=== PATIENT | female | born 1965 | race Caucasian/White ===

== ENCOUNTER 2022-07-24 13:40 | Inpatient (IN) | payer OTHER ==
[~2022-07-24] VITALS: Ht 172.7 cm; Wt 131.1 kg
[2022-07-24 14:12] VITALS: BP_SYST 147
[2022-07-24] MEDS ORDERED: CLINDAMYCIN 600 MG in D5W 50 ML IV ONE (15:45)
[2022-07-24] MEDS ORDERED: cefTRIAXone 1 GM in D5W 50 ML IV ONE (15:45)
[2022-07-24 16:32] LABS: BASOPHILS % (AUTO) 0.3 % (0.0-2.0); EOSINOPHILS # (AUTO) 0.1 K/uL (0.0-0.4); EOSINOPHILS % (AUTO) 1.2 % (0.0-4.0); HEMATOCRIT 37.7 % (36-48); HEMOGLOBIN 13.1 g/dL (12.0-16.0); LYMPHOCYTES # (AUTO) 1.7 K/uL (1.0-5.5); LYMPHOCYTES % (AUTO) 19.2 % (20.5-51.5); MEAN CORPUSCULAR HEMOGLOBIN 31 pg (27-31); MEAN CORPUSCULAR HGB CONC 35 % (32-36); MEAN CORPUSCULAR VOLUME 88 fL (79.0-98.0); MONOCYTES # (AUTO) 0.5 K/uL (0.0-1.0); MONOCYTES % (AUTO) 5.5 % (1.7-9.3); NEUTROPHILS # (AUTO) 6.7 K/uL (1.8-7.7); NEUTROPHILS % (AUTO) 73.8 % (40.0-70.0); PLATELET COUNT (AUTO) 357 K/uL (130-430); RED BLOOD CELL COUNT(AUTO) 4.28 MIL/uL (4.2-6.2)
[2022-07-24 16:38] LABS: ERYTHROCYTE SEDIMENTATION RATE 64 MM/HR (0-20)
[2022-07-24 16:46] LABS: ALBUMIN 3.4 g/dL (3.4-4.8); CALCIUM 9.2 mg/dL (8.4-11.0); CREATININE 1.67 mg/dL (0.55-1.30); TOTAL BILIRUBIN 0.3 mg/dL (0.0-1.0)
[2022-07-24] MEDS ORDERED: cefTRIAXone 1 GM VIAL ONE (16:59)
[2022-07-24] MEDS ORDERED: INSULIN REGULAR, HUMAN 10 UNITS/0.1 ML, 3 ML VIAL SUBCUT ONE (17:00)
[2022-07-24] MEDS ORDERED: OXAZ30CA PO (22:47)
[2022-07-24] MEDS ORDERED: CARV25TA55 PO (22:47)
[2022-07-24] MEDS ORDERED: GABA-529 PO (22:47)
[2022-07-24] MEDS ORDERED: NORT10CA PO (22:47)
[2022-07-25 01:10] VITALS: BP_SYST 161
[2022-07-25] MEDS ORDERED: GABAPENTIN 300 MG CAPSULE PO ONE (02:15)
[2022-07-25] MEDS ORDERED: CARVEDILOL 25 MG TABLET (COREG) PO ONE (02:30)
[2022-07-25 04:49] VITALS: BP_SYST 142
[2022-07-25] MEDS: INSULIN REGULAR, HUMAN 100 UNITS/ML, 3 ML VIAL (humuLIN R) SUBCUT PRN ×3 (05:38→20:59)
[2022-07-25] MEDS ORDERED: ACETAMINOPHEN 325 MG TABLET PO PRN ×2 (10:00→10:30)
[2022-07-25] MEDS ORDERED: NALOXONE HCL 0.4 MG/ML AMP (NARCAN) IVP PRN ×2 (10:00)
[2022-07-25 10:10] LABS: BASOPHILS % (AUTO) 0.5 % (0.0-2.0); EOSINOPHILS # (AUTO) 0.2 K/uL (0.0-0.4); EOSINOPHILS % (AUTO) 2.2 % (0.0-4.0); HEMATOCRIT 34.3 % (36-48); HEMOGLOBIN 11.7 g/dL (12.0-16.0); LYMPHOCYTES # (AUTO) 2.1 K/uL (1.0-5.5); LYMPHOCYTES % (AUTO) 25.8 % (20.5-51.5); MEAN CORPUSCULAR HEMOGLOBIN 30 pg (27-31); MEAN CORPUSCULAR HGB CONC 34 % (32-36); MEAN CORPUSCULAR VOLUME 89 fL (79.0-98.0); MONOCYTES # (AUTO) 0.6 K/uL (0.0-1.0); MONOCYTES % (AUTO) 7.7 % (1.7-9.3); NEUTROPHILS # (AUTO) 5.2 K/uL (1.8-7.7); NEUTROPHILS % (AUTO) 63.8 % (40.0-70.0); PLATELET COUNT (AUTO) 285 K/uL (130-430); RED BLOOD CELL COUNT(AUTO) 3.88 MIL/uL (4.2-6.2); WHITE BLOOD COUNT (AUTO) 8.2 K/uL (4.8-10.8)
[2022-07-25 10:16] LABS: ALBUMIN 2.7 g/dL (3.4-4.8); CALCIUM 8.6 mg/dL (8.4-11.0); CREATININE 1.7 mg/dL (0.55-1.30); PHOSPHORUS 2.9 mg/dL (2.7-4.5); TOTAL BILIRUBIN 0.2 mg/dL (0.0-1.0)
[2022-07-25] MEDS: HYDROcodone/ACETAMIN 10-325 MG TAB PO PRN (10:31)
[2022-07-25] MEDS ORDERED: ONDANSETRON HCL 4 MG/2 ML VIAL IM PRN (11:45)
[2022-07-25] MEDS ORDERED: KETOROLAC TROMETHAMINE 30 MG VIAL IVP PRN (11:45)
[2022-07-25] MEDS: ONDANSETRON HCL 4 MG/2 ML VIAL IVP PRN ×2 (11:57→18:35)
[2022-07-25] MEDS ORDERED: CLINDAMYCIN 300 MG/50 ML D5W 50 ML IV SCH (12:00)
[2022-07-25] MEDS ORDERED: CLINDAMYCIN 300 MG in D5W 50 ML IV SCH (12:00)
[2022-07-25 12:03] VITALS: BP_SYST 141
[2022-07-25] MEDS: NORMAL SALINE 5 ML DISP.SYRIN IVF SCH ×2 (13:27→21:00)
[2022-07-25] MEDS ORDERED: NORTRIPTYLINE HCL 10 MG CAPSULE PO SCH (15:00)
[2022-07-25] MEDS ORDERED: OXAZEPAM PO SCH (15:00)
[2022-07-25 16:29] VITALS: BP_SYST 143
[2022-07-25] MEDS ORDERED: MORPHINE 2 MG/ML INJ. SYRINGE IVP ONE (17:15)
[2022-07-25] MEDS: NACL 0.9% 1,000 ML IV SCH ×2 (18:35→20:46)
[2022-07-25] MEDS ORDERED: VANCOMYCIN HCL 1,000 MG in NS 250 ML IV SCH (20:00)
[2022-07-25 20:10] VITALS: BP_SYST 146
[2022-07-25] MEDS: VANCOMYCIN HCL 1,000 MG in NS 250 ML IV SCH (20:47)
[2022-07-25] MEDS: GABAPENTIN 300 MG CAPSULE PO SCH (20:54)
[2022-07-25] MEDS: CARVEDILOL 25 MG TABLET (COREG) PO SCH (20:54)
[2022-07-25] MEDS: INSULIN GLARGINE 100 UNITS/ML, 10 ML VIAL SUBCUT SCH (20:56)
[2022-07-25] MEDS: LORazepam 2 MG/ML VIAL IVP PRN (22:51)
[2022-07-26 00:21] LABS: BILIRUBIN,URINE NEGATIVE (NEGATIVE); BLOOD, URINE NEGATIVE (NEGATIVE); COLOR,URINE YELLOW (YELLOW); GLUCOSE,URINE 3+ (NEGATIVE); KETONES,URINE NEGATIVE (NEGATIVE); LEUKOCYTE ESTERASE ,URINE NEGATIVE (NEGATIVE); NITRITE, URINE NEGATIVE (NEGATIVE); PROTEIN URINE 2+ (NEGATIVE); UROBILINOGEN,URINE 0.2 (0.2-1.0)
[2022-07-26 00:29] LABS: CLARITY/URINE HAZY (CLEAR)
[2022-07-26 00:31] LABS: BACTERIA,URINE None Seen /HPF (None Seen); RBC,URINE 0-3 /HPF (0-3); WBC,URINE 0-3 /HPF (0-3)
[2022-07-26 02:30] VITALS: BP_SYST 143
[2022-07-26 04:00] VITALS: BP_SYST 130
[2022-07-26 05:19] LABS: BASOPHILS % (AUTO) 0.5 % (0.0-2.0); EOSINOPHILS # (AUTO) 0.2 K/uL (0.0-0.4); EOSINOPHILS % (AUTO) 2.9 % (0.0-4.0); HEMATOCRIT 34.8 % (36-48); HEMOGLOBIN 11.9 g/dL (12.0-16.0); LYMPHOCYTES # (AUTO) 2.4 K/uL (1.0-5.5); LYMPHOCYTES % (AUTO) 31.1 % (20.5-51.5); MEAN CORPUSCULAR HEMOGLOBIN 30 pg (27-31); MEAN CORPUSCULAR HGB CONC 34 % (32-36); MEAN CORPUSCULAR VOLUME 89 fL (79.0-98.0); MONOCYTES # (AUTO) 0.6 K/uL (0.0-1.0); MONOCYTES % (AUTO) 7.3 % (1.7-9.3); NEUTROPHILS # (AUTO) 4.6 K/uL (1.8-7.7); NEUTROPHILS % (AUTO) 58.2 % (40.0-70.0); PLATELET COUNT (AUTO) 283 K/uL (130-430); RED BLOOD CELL COUNT(AUTO) 3.91 MIL/uL (4.2-6.2); RED CELL DISTRIBUTION WIDTH 13.3 % (9.0-15.0); WHITE BLOOD COUNT (AUTO) 7.9 K/uL (4.8-10.8)
[2022-07-26] MEDS: NORMAL SALINE 5 ML DISP.SYRIN IVF SCH ×3 (05:46→22:46)
[2022-07-26] MEDS: INSULIN REGULAR, HUMAN 100 UNITS/ML, 3 ML VIAL (humuLIN R) SUBCUT PRN ×2 (05:51→22:45)
[2022-07-26 05:56] LABS: C-REACTIVE PROTEIN QUANT 0.2 mg/dL (0-0.5); CALCIUM 8.2 mg/dL (8.4-11.0); CREATININE 1.54 mg/dL (0.55-1.30); PHOSPHORUS 3.5 mg/dL (2.7-4.5)
[2022-07-26 07:38] LABS: ERYTHROCYTE SEDIMENTATION RATE 33 MM/HR (0-20)
[2022-07-26 08:23] VITALS: BP_SYST 159
[2022-07-26] MEDS: CARVEDILOL 25 MG TABLET (COREG) PO SCH ×2 (10:37→22:04)
[2022-07-26] MEDS: HYDROcodone/ACETAMIN 10-325 MG TAB PO PRN ×2 (10:40→20:07)
[2022-07-26] MEDS: INSULIN GLARGINE 100 UNITS/ML, 10 ML VIAL SUBCUT SCH ×2 (10:55→22:46)
[2022-07-26 14:34] VITALS: BP_SYST 124
[2022-07-26 18:35] VITALS: BP_SYST 149
[2022-07-26 20:10] VITALS: BP_SYST 131
[2022-07-26] MEDS: GABAPENTIN 300 MG CAPSULE PO SCH (22:04)
[2022-07-26] MEDS: VANCOMYCIN HCL 1,000 MG in NS 250 ML IV SCH (22:06)
[2022-07-26] MEDS: NACL 0.9% 1,000 ML IV SCH (22:07)
[2022-07-26] MEDS: LORazepam 2 MG/ML VIAL IVP PRN (22:56)
[2022-07-27 01:11] VITALS: BP_SYST 131
[2022-07-27 05:42] LABS: BASOPHILS % (AUTO) 0.5 % (0.0-2.0); EOSINOPHILS # (AUTO) 0.2 K/uL (0.0-0.4); EOSINOPHILS % (AUTO) 3.2 % (0.0-4.0); HEMATOCRIT 32.6 % (36-48); HEMOGLOBIN 11.1 g/dL (12.0-16.0); LYMPHOCYTES # (AUTO) 2.7 K/uL (1.0-5.5); LYMPHOCYTES % (AUTO) 34.9 % (20.5-51.5); MEAN CORPUSCULAR HEMOGLOBIN 30 pg (27-31); MEAN CORPUSCULAR HGB CONC 34 % (32-36); MEAN CORPUSCULAR VOLUME 89 fL (79.0-98.0); MONOCYTES # (AUTO) 0.6 K/uL (0.0-1.0); MONOCYTES % (AUTO) 7.5 % (1.7-9.3); NEUTROPHILS # (AUTO) 4.1 K/uL (1.8-7.7); NEUTROPHILS % (AUTO) 53.9 % (40.0-70.0); PLATELET COUNT (AUTO) 264 K/uL (130-430); RED BLOOD CELL COUNT(AUTO) 3.68 MIL/uL (4.2-6.2); RED CELL DISTRIBUTION WIDTH 12.7 % (9.0-15.0); WHITE BLOOD COUNT (AUTO) 7.6 K/uL (4.8-10.8)
[2022-07-27] MEDS: NORMAL SALINE 5 ML DISP.SYRIN IVF SCH ×3 (06:43→21:29)
[2022-07-27 06:50] LABS: ALANINE AMINOTRANSFERASE 14 U/L (12-78); ALBUMIN 2.3 g/dL (3.4-4.8); ANION GAP 5 (5-15); ASPARTATE AMINOTRANSFERASE 13 U/L (10-37); CALCIUM 8.1 mg/dL (8.4-11.0); CHLORIDE 104 mmol/L (98-107); CREATININE 1.59 mg/dL (0.55-1.30); GLUCOSE 241 mg/dL (70-99); PHOSPHORUS 3.6 mg/dL (2.7-4.5); TOTAL BILIRUBIN 0.2 mg/dL (0.0-1.0); UREA NITROGEN, BLOOD 31 mg/dL (8-21)
[2022-07-27 07:36] LABS: C-REACTIVE PROTEIN QUANT < 0.2 mg/dL (0-0.5); GFR AFRICAN AMERICAN 43 mL/min (>90)
[2022-07-27 08:13] LABS: ERYTHROCYTE SEDIMENTATION RATE 31 MM/HR (0-20)
[2022-07-27] MEDS: INSULIN GLARGINE 100 UNITS/ML, 10 ML VIAL SUBCUT SCH ×2 (09:00→21:29)
[2022-07-27] MEDS: CARVEDILOL 25 MG TABLET (COREG) PO SCH ×2 (09:56→21:13)
[2022-07-27 11:26] VITALS: BP_SYST 125
[2022-07-27] MEDS: NACL 0.9% 1,000 ML IV SCH (12:11)
[2022-07-27] MEDS ORDERED: BALSAM PERU/CASTOR OIL 56.7 GM OINT...G. TP ONE (14:30)
[2022-07-27 16:55] VITALS: BP_SYST 175
[2022-07-27] MEDS: GABAPENTIN 300 MG CAPSULE PO SCH (21:12)
[2022-07-27] MEDS: VANCOMYCIN HCL 1,000 MG in NS 250 ML IV SCH (21:13)
[2022-07-27] MEDS: INSULIN REGULAR, HUMAN 100 UNITS/ML, 3 ML VIAL (humuLIN R) SUBCUT PRN (21:28)
[2022-07-27 22:27] VITALS: BP_SYST 161
[2022-07-27] MEDS: HYDROcodone/ACETAMIN 5-325 MG TAB (NORCO/ VICODIN) PO PRN (23:01)
[2022-07-28 00:34] VITALS: BP_SYST 149
[2022-07-28] MEDS: NACL 0.9% 1,000 ML IV SCH (02:03)
[2022-07-28 05:10] VITALS: BP_SYST 139
[2022-07-28] MEDS: NORMAL SALINE 5 ML DISP.SYRIN IVF SCH ×3 (05:11→22:16)
[2022-07-28 06:10] LABS: BASOPHILS % (AUTO) 0.5 % (0.0-2.0); EOSINOPHILS # (AUTO) 0.2 K/uL (0.0-0.4); EOSINOPHILS % (AUTO) 2.7 % (0.0-4.0); HEMATOCRIT 34.2 % (36-48); HEMOGLOBIN 11.9 g/dL (12.0-16.0); LYMPHOCYTES # (AUTO) 2.4 K/uL (1.0-5.5); LYMPHOCYTES % (AUTO) 32.2 % (20.5-51.5); MEAN CORPUSCULAR HEMOGLOBIN 30 pg (27-31); MEAN CORPUSCULAR HGB CONC 35 % (32-36); MEAN CORPUSCULAR VOLUME 88 fL (79.0-98.0); MONOCYTES # (AUTO) 0.6 K/uL (0.0-1.0); MONOCYTES % (AUTO) 7.6 % (1.7-9.3); NEUTROPHILS # (AUTO) 4.2 K/uL (1.8-7.7); PLATELET COUNT (AUTO) 274 K/uL (130-430); RED CELL DISTRIBUTION WIDTH 12.8 % (9.0-15.0); WHITE BLOOD COUNT (AUTO) 7.4 K/uL (4.8-10.8)
[2022-07-28 06:25] LABS: ANION GAP 5 (5-15); CALCIUM 8.4 mg/dL (8.4-11.0); CHLORIDE 104 mmol/L (98-107); CREATININE 1.26 mg/dL (0.55-1.30); GLUCOSE 162 mg/dL (70-99); PHOSPHORUS 3.1 mg/dL (2.7-4.5); UREA NITROGEN, BLOOD 23 mg/dL (8-21)
[2022-07-28 06:31] LABS: ERYTHROCYTE SEDIMENTATION RATE 35 MM/HR (0-20)
[2022-07-28] MEDS: HYDROcodone/ACETAMIN 5-325 MG TAB (NORCO/ VICODIN) PO PRN (06:31)
[2022-07-28 06:54] LABS: GFR AFRICAN AMERICAN 56 mL/min (>90)
[2022-07-28 06:55] LABS: C-REACTIVE PROTEIN QUANT < 0.2 mg/dL (0-0.5)
[2022-07-28] MEDS: INSULIN GLARGINE 100 UNITS/ML, 10 ML VIAL SUBCUT SCH ×2 (08:58→20:45)
[2022-07-28] MEDS: VANCOMYCIN HCL 1,000 MG in NS 250 ML IV SCH ×2 (09:00→22:17)
[2022-07-28] MEDS: CARVEDILOL 25 MG TABLET (COREG) PO SCH ×2 (09:00→20:34)
[2022-07-28] MEDS: BALSAM PERU/CASTOR OIL 56.7 GM OINT...G. TP SCH (09:01)
[2022-07-28 12:21] VITALS: BP_SYST 127
[2022-07-28 17:13] VITALS: BP_SYST 154
[2022-07-28 20:00] VITALS: BP_SYST 151
[2022-07-28] MEDS: GABAPENTIN 300 MG CAPSULE PO SCH (20:34)
[2022-07-28] MEDS: HYDROcodone/ACETAMIN 10-325 MG TAB PO PRN (20:35)
[2022-07-28] MEDS: INSULIN REGULAR, HUMAN 100 UNITS/ML, 3 ML VIAL (humuLIN R) SUBCUT PRN (20:46)
[2022-07-28] MEDS ORDERED: NORTRIPTYLINE HCL 10 MG CAPSULE PO SCH (21:00)
[2022-07-28] MEDS ORDERED: AMITRIPTYLINE HCL 10 MG TABLET (ELAVIL) PO PRN (22:15)
[2022-07-28] MEDS: ONDANSETRON HCL 4 MG/2 ML VIAL IVP PRN (22:20)
[2022-07-29 04:00] VITALS: BP_SYST 129
[2022-07-29] MEDS: NORMAL SALINE 5 ML DISP.SYRIN IVF SCH ×3 (06:25→21:49)
[2022-07-29] MEDS: HYDROcodone/ACETAMIN 10-325 MG TAB PO PRN ×3 (06:42→21:33)
[2022-07-29] MEDS: BALSAM PERU/CASTOR OIL 56.7 GM OINT...G. TP SCH (06:50)
[2022-07-29 08:01] LABS: BASOPHILS % (AUTO) 0.5 % (0.0-2.0); EOSINOPHILS # (AUTO) 0.2 K/uL (0.0-0.4); EOSINOPHILS % (AUTO) 2.8 % (0.0-4.0); HEMATOCRIT 35.6 % (36-48); LYMPHOCYTES # (AUTO) 2.7 K/uL (1.0-5.5); LYMPHOCYTES % (AUTO) 36.2 % (20.5-51.5); MEAN CORPUSCULAR HEMOGLOBIN 30 pg (27-31); MEAN CORPUSCULAR HGB CONC 34 % (32-36); MEAN CORPUSCULAR VOLUME 90 fL (79.0-98.0); MONOCYTES # (AUTO) 0.6 K/uL (0.0-1.0); MONOCYTES % (AUTO) 7.7 % (1.7-9.3); NEUTROPHILS # (AUTO) 3.9 K/uL (1.8-7.7); NEUTROPHILS % (AUTO) 52.8 % (40.0-70.0); PLATELET COUNT (AUTO) 296 K/uL (130-430); RED BLOOD CELL COUNT(AUTO) 3.98 MIL/uL (4.2-6.2); WHITE BLOOD COUNT (AUTO) 7.5 K/uL (4.8-10.8)
[2022-07-29 08:02] VITALS: BP_SYST 105
[2022-07-29 08:12] LABS: ANION GAP 5 (5-15); CALCIUM 8.4 mg/dL (8.4-11.0); CHLORIDE 106 mmol/L (98-107); CREATININE 1.25 mg/dL (0.55-1.30); GLUCOSE 80 mg/dL (70-99); PHOSPHORUS 3.9 mg/dL (2.7-4.5); UREA NITROGEN, BLOOD 20 mg/dL (8-21)
[2022-07-29 08:14] LABS: C-REACTIVE PROTEIN QUANT < 0.2 mg/dL (0-0.5); GFR AFRICAN AMERICAN 57 mL/min (>90)
[2022-07-29 08:25] LABS: ERYTHROCYTE SEDIMENTATION RATE 35 MM/HR (0-20)
[2022-07-29] MEDS: VANCOMYCIN HCL 1,000 MG in NS 250 ML IV SCH ×2 (09:05→21:49)
[2022-07-29] MEDS: CARVEDILOL 25 MG TABLET (COREG) PO SCH ×2 (09:06→20:16)
[2022-07-29] MEDS: INSULIN GLARGINE 100 UNITS/ML, 10 ML VIAL SUBCUT SCH ×2 (09:17→21:39)
[2022-07-29 12:00] VITALS: BP_SYST 138
[2022-07-29] MEDS ORDERED: INSU100V9 SUBCUT (15:18)
[2022-07-29 16:00] VITALS: BP_SYST 145
[2022-07-29] MEDS: INSULIN REGULAR, HUMAN 100 UNITS/ML, 3 ML VIAL (humuLIN R) SUBCUT PRN ×2 (17:05→21:40)
[2022-07-29 20:00] VITALS: BP_SYST 138
[2022-07-29] MEDS: GABAPENTIN 300 MG CAPSULE PO SCH (20:16)
[2022-07-30] VITALS (7 sets, daily range): BP systolic 96–147
[2022-07-30] MEDS: ONDANSETRON HCL 4 MG/2 ML VIAL IVP PRN ×3 (01:25→18:15)
[2022-07-30] MEDS: HYDROcodone/ACETAMIN 10-325 MG TAB PO PRN ×2 (01:25→06:28)
[2022-07-30 05:12] LABS: ALBUMIN 2.4 g/dL (3.4-4.8); CALCIUM 8.2 mg/dL (8.4-11.0); CREATININE 1.55 mg/dL (0.55-1.30); PHOSPHORUS 3.7 mg/dL (2.7-4.5); TOTAL BILIRUBIN 0.2 mg/dL (0.0-1.0)
[2022-07-30 06:07] LABS: BASOPHILS % (AUTO) 0.4 % (0.0-2.0); EOSINOPHILS # (AUTO) 0.2 K/uL (0.0-0.4); EOSINOPHILS % (AUTO) 3.1 % (0.0-4.0); HEMATOCRIT 33.6 % (36-48); HEMOGLOBIN 11.3 g/dL (12.0-16.0); LYMPHOCYTES # (AUTO) 2.6 K/uL (1.0-5.5); LYMPHOCYTES % (AUTO) 34.7 % (20.5-51.5); MEAN CORPUSCULAR HEMOGLOBIN 30 pg (27-31); MEAN CORPUSCULAR HGB CONC 34 % (32-36); MEAN CORPUSCULAR VOLUME 90 fL (79.0-98.0); MONOCYTES # (AUTO) 0.7 K/uL (0.0-1.0); NEUTROPHILS % (AUTO) 52.8 % (40.0-70.0); PLATELET COUNT (AUTO) 284 K/uL (130-430); RED BLOOD CELL COUNT(AUTO) 3.72 MIL/uL (4.2-6.2); RED CELL DISTRIBUTION WIDTH 12.9 % (9.0-15.0); WHITE BLOOD COUNT (AUTO) 7.6 K/uL (4.8-10.8)
[2022-07-30] MEDS: NORMAL SALINE 5 ML DISP.SYRIN IVF SCH ×3 (06:23→22:30)
[2022-07-30] MEDS: CARVEDILOL 25 MG TABLET (COREG) PO SCH ×2 (09:30→20:55)
[2022-07-30] MEDS: BALSAM PERU/CASTOR OIL 56.7 GM OINT...G. TP SCH (09:31)
[2022-07-30] MEDS: INSULIN GLARGINE 100 UNITS/ML, 10 ML VIAL SUBCUT SCH ×2 (09:33→21:03)
[2022-07-30] MEDS ORDERED: HYDR-3927 PO (10:45)
[2022-07-30] MEDS ORDERED: CEFA2SYR4 IV (10:45)
[2022-07-30] MEDS ORDERED: VANC1PLA9 IV (10:45)
[2022-07-30] MEDS ORDERED: PERC10 PO (10:45)
[2022-07-30] MEDS: VANCOMYCIN HCL 1,000 MG in NS 250 ML IV SCH ×2 (11:21→21:00)
[2022-07-30] MEDS: OXYCODONE/ACETAMINOPHEN *10*mg/325 mg TABLET PO PRN ×2 (11:50→20:56)
[2022-07-30] MEDS: GABAPENTIN 300 MG CAPSULE PO SCH (20:54)
== END 2022-07-30 23:20 | disposition home or self-care (01) | DRG 871 ==
LOC: SED 13:40 → SMU 22:28
PROVIDERS: ADMIT Preventive Medicine Preventive Medicine/Occupational Environmental Medicine; ATTEND Preventive Medicine Preventive Medicine/Occupational Environmental Medicine
DX: A41.9 Sepsis, unspecified organism (principal); E43 Unspecified severe protein-calorie malnutrition; L03.113 Cellulitis of right upper limb; E87.1 Hypo-osmolality and hyponatremia; N17.9 Acute kidney failure, unspecified; I13.0 Hypertensive heart and chronic kidney disease with heart failure and stage 1 through stage 4 chronic kidney disease, or unspecified chronic kidney disease; Z68.41 Body mass index [BMI] 40.0-44.9, adult; I25.10 Atherosclerotic heart disease of native coronary artery without angina pectoris; E11.65 Type 2 diabetes mellitus with hyperglycemia; S61.451A Open bite of right hand, initial encounter; E11.22 Type 2 diabetes mellitus with diabetic chronic kidney disease; N18.32 Chronic kidney disease, stage 3b; I50.9 Heart failure, unspecified; E83.51 Hypocalcemia; E83.52 Hypercalcemia; D64.9 Anemia, unspecified; E88.09 Other disorders of plasma-protein metabolism, not elsewhere classified; L03.011 Cellulitis of right finger; Z20.822 Contact with and (suspected) exposure to COVID-19; Z88.0 Allergy status to penicillin; Z79.899 Other long term (current) drug therapy; Z90.710 Acquired absence of both cervix and uterus; W55.01XA Bitten by cat, initial encounter; Y93.89 Activity, other specified; Y92.89 Other specified places as the place of occurrence of the external cause; Y99.8 Other external cause status; Y93.9 Activity, unspecified; Y92.9 Unspecified place or not applicable
CPT/HCPCS: 36415; 78315; 80048; 80053; 80202; 81000; 82962; 83605; 83735; 84100; 84302; 85025; 85651-TC; 86140; 87040; 87070-TC; 87075-TC; 96365; 96368; 99285; A9503; J0696; J1815; J2060; J2270; J2405; J3370; J3490; J7050; J7060

== ENCOUNTER 2022-08-09 20:44 | Emergency (ER) | payer OTHER ==
[~2022-08-09] VITALS: Ht 172.7 cm; Wt 135.2 kg
[~2022-08-09 20:44] MED LIST: CARV25TA55 PO; CEFA2SYR4 IV; GABA-529 PO; HYDR-3927 PO; INSU100V9 SUBCUT; NORT10CA PO; OXAZ30CA PO; PERC10 PO; VANC1PLA9 IV
[2022-08-09 20:50] VITALS: BP_SYST 187
--- NOTE | 2022-08-09 20:56 | NUR ---
Patient triaged and placed in waiting room. VSS and patient appears in no acute distress at this time. Accompanied by SELF, awaiting available bed, and MD notified of need for MSE.
--- NOTE | 2022-08-09 21:39 | NUR ---
PT PLACED IN ROOM 6 AND REPORT GIVEN TO HANSA GOLDBERG
[2022-08-10 00:01] LABS: BASOPHILS % (AUTO) 0.4 % (0.0-2.0); EOSINOPHILS # (AUTO) 0.2 K/uL (0.0-0.4); EOSINOPHILS % (AUTO) 2.6 % (0.0-4.0); HEMATOCRIT 32.1 % (36-48); HEMOGLOBIN 10.9 g/dL (12.0-16.0); LYMPHOCYTES # (AUTO) 1.8 K/uL (1.0-5.5); LYMPHOCYTES % (AUTO) 25.9 % (20.5-51.5); MEAN CORPUSCULAR HEMOGLOBIN 30 pg (27-31); MEAN CORPUSCULAR HGB CONC 34 % (32-36); MEAN CORPUSCULAR VOLUME 89 fL (79.0-98.0); MONOCYTES # (AUTO) 0.5 K/uL (0.0-1.0); MONOCYTES % (AUTO) 7.2 % (1.7-9.3); NEUTROPHILS # (AUTO) 4.4 K/uL (1.8-7.7); NEUTROPHILS % (AUTO) 63.9 % (40.0-70.0); PLATELET COUNT (AUTO) 269 K/uL (130-430); RED CELL DISTRIBUTION WIDTH 13.1 % (9.0-15.0); WHITE BLOOD COUNT (AUTO) 6.8 K/uL (4.8-10.8)
[2022-08-10 00:05] LABS: ANION GAP 11 (5-15); CALCIUM 8.9 mg/dL (8.4-11.0); CHLORIDE 101 mmol/L (98-107); CREATININE 1.37 mg/dL (0.55-1.30); GFR AFRICAN AMERICAN 51 mL/min (>90); GLUCOSE 191 mg/dL (70-99); UREA NITROGEN, BLOOD 20 mg/dL (8-21)
[2022-08-10 00:12] LABS: ALANINE AMINOTRANSFERASE 20 U/L (12-78); ALBUMIN 3.2 g/dL (3.4-4.8); ASPARTATE AMINOTRANSFERASE 15 U/L (10-37); TOTAL BILIRUBIN 0.4 mg/dL (0.0-1.0); VANCOMYCIN,RANDOM 0.5 ug/mL
[2022-08-10] MEDS ORDERED: VANCOMYCIN HCL 1000 MG/VIAL IV ONE ×2 (00:14→00:42)
--- NOTE | 2022-08-10 00:36 | NUR ---
MD TRAN AT BEDSIDE TO DISCUSS FINDINGS AND ADDITIONAL PLAN OF CARE
[2022-08-10 00:42] LABS: BILIRUBIN,URINE NEGATIVE (NEGATIVE); BLOOD, URINE 1+ (NEGATIVE); COLOR,URINE YELLOW (YELLOW); GLUCOSE,URINE 2+ (NEGATIVE); KETONES,URINE TRACE (NEGATIVE); LEUKOCYTE ESTERASE ,URINE NEGATIVE (NEGATIVE); NITRITE, URINE NEGATIVE (NEGATIVE); PROTEIN URINE 3+ (NEGATIVE); UROBILINOGEN,URINE 0.2 (0.2-1.0)
[2022-08-10] MEDS ORDERED: VANCOMYCIN HCL 1,000 MG in NS 250 ML IV ONE (00:45)
[2022-08-10 00:46] LABS: CLARITY/URINE HAZY (CLEAR)
[2022-08-10 00:58] LABS: BACTERIA,URINE None Seen /HPF (None Seen); WBC,URINE 0-3 /HPF (0-3)
--- NOTE | 2022-08-10 01:29 | NUR ---
DR TRAN AT BEDSIDE TO DISCUSS DISCHARGE PLANS. MD DIALLO'D PICC LINE. DRESSING APPLIED WITH COBKEIKO
[2022-08-10] MEDS ORDERED: VANCOMYCIN HCL IV ONE (01:30)
[2022-08-10] MEDS ORDERED: NS IV ONE (01:30)
[2022-08-10 01:42] VITALS: BP_SYST 162
--- NOTE | 2022-08-10 02:00 | NUR ---
Patient given written and verbal discharge instructions and verbalizes understanding. ER MD TRAN discussed with patient the results and treatment provided. Patient in stable condition. ID arm band removed. IV catheter removed intact and dressing applied, no active bleeding. . Patient educated on pain management and to follow up with PMD. Pain Scale . Opportunity for questions provided and answered. Medication side effect fact sheet provided.
== END 2022-08-10 01:42 | disposition home or self-care (01) ==
LOC: SED 20:44
DX: L03.114 Cellulitis of left upper limb (principal); L03.113 Cellulitis of right upper limb; I10 Essential (primary) hypertension; D64.9 Anemia, unspecified; N17.9 Acute kidney failure, unspecified; R06.00 Dyspnea, unspecified; E11.9 Type 2 diabetes mellitus without complications; Z45.2 Encounter for adjustment and management of vascular access device; Z88.0 Allergy status to penicillin; Z79.4 Long term (current) use of insulin; Z79.899 Other long term (current) drug therapy
CPT/HCPCS: 99284; 71045; 80202; 80053; 81000; 83880; 85025; 87040; 84484; 36415; 83605; 96365; J3370

== ENCOUNTER 2022-08-27 22:00 | Emergency (ER) | payer OTHER ==
[2022-08-27] MEDS ORDERED: ACETAMINOPHEN 500 MG TABLET PO ONE (23:00)
[2022-08-27 23:06] LABS: BASOPHILS # (AUTO) 0.1 K/uL (0.0-0.2); BASOPHILS % (AUTO) 0.9 % (0.0-2.0); EOSINOPHILS # (AUTO) 0.3 K/uL (0.0-0.4); EOSINOPHILS % (AUTO) 3.4 % (0.0-4.0); HEMOGLOBIN 11.6 g/dL (12.0-16.0); LYMPHOCYTES # (AUTO) 2.2 K/uL (1.0-5.5); LYMPHOCYTES % (AUTO) 22.7 % (20.5-51.5); MEAN CORPUSCULAR HEMOGLOBIN 30 pg (27-31); MEAN CORPUSCULAR HGB CONC 34 % (32-36); MEAN CORPUSCULAR VOLUME 89 fL (79.0-98.0); MONOCYTES # (AUTO) 0.6 K/uL (0.0-1.0); MONOCYTES % (AUTO) 6.6 % (1.7-9.3); NEUTROPHILS # (AUTO) 6.4 K/uL (1.8-7.7); NEUTROPHILS % (AUTO) 66.4 % (40.0-70.0); PLATELET COUNT (AUTO) 275 K/uL (130-430); RED BLOOD CELL COUNT(AUTO) 3.82 MIL/uL (4.2-6.2); RED CELL DISTRIBUTION WIDTH 12.8 % (9.0-15.0); WHITE BLOOD COUNT (AUTO) 9.6 K/uL (4.8-10.8)
[2022-08-27 23:12] VITALS: BP_SYST 127
--- NOTE | 2022-08-27 23:18 | NUR ---
Patient triaged and placed in waiting room. VSS and patient appears in no acute distress at this time. Accompanied by self, awaiting available bed, and MD notified of need for MSE.
--- NOTE | 2022-08-27 23:47 | NUR ---
Patient to ER bed 5 to gown for evaluation. Side rails up. Report given to .
--- NOTE | 2022-08-27 23:48 | NUR ---
Patient to ER bed 5 to gown for evaluation. Side rails up. Report given to caleb trotter.
--- NOTE | 2022-08-27 23:49 | NUR ---
Patient to ER bed 6 to gown for evaluation. Side rails up. Report given to caleb trotter.
[2022-08-27 23:56] LABS: CREATININE 2.01 mg/dL (0.55-1.30)
[2022-08-28] MEDS ORDERED: NACL 0.9% 1,000 ML IV ONE
[2022-08-28 00:05] LABS: ALBUMIN 3.2 g/dL (3.4-4.8); TOTAL BILIRUBIN 0.2 mg/dL (0.0-1.0)
[2022-08-28] MEDS ORDERED: MORPHINE 2 MG/ML INJ. SYRINGE IVP ONE (00:15)
[2022-08-28] MEDS ORDERED: CEPH-548 PO (02:10)
[2022-08-28] MEDS ORDERED: TRAM50TA2 PO (02:10)
[2022-08-28] MEDS ORDERED: CIPR500T5 PO (02:10)
[2022-08-28] MEDS ORDERED: PHEN-726 PO (02:10)
[2022-08-28] MEDS ORDERED: OXYC-128 PO (02:12)
[2022-08-28 02:16] VITALS: BP_SYST 42
--- NOTE | 2022-08-28 02:20 | NUR ---
Patient given written and verbal discharge instructions and verbalizes understanding. ER MD discussed with patient the results and treatment provided. Patient in stable condition. ID arm band removed. IV catheter removed intact and dressing applied, no active bleeding. Rx of Cipro, Keflex, Percocet given. Patient educated on pain management and to follow up with PMD. Pain Scale 0. Opportunity for questions provided and answered. Medication side effect fact sheet provided.
[2022-08-28 02:24] LABS: BILIRUBIN,URINE 2+ (NEGATIVE); BLOOD, URINE 3+ (NEGATIVE); COLOR,URINE YELLOW (YELLOW); GLUCOSE,URINE TRACE (NEGATIVE); KETONES,URINE TRACE (NEGATIVE); LEUKOCYTE ESTERASE ,URINE 2+ (NEGATIVE); NITRITE, URINE POSITIVE (NEGATIVE); PH,URINE 6.5 (5.0-8.0); PROTEIN URINE 3+ (NEGATIVE)
[2022-08-28 02:47] LABS: CLARITY/URINE CLOUDY (CLEAR)
[2022-08-28 02:57] LABS: BACTERIA,URINE MANY /HPF (None Seen); WBC,URINE >100 /HPF (0-3)
== END 2022-08-28 02:16 | disposition home or self-care (01) ==
LOC: SED 22:00
DX: N39.0 Urinary tract infection, site not specified (principal); R39.11 Hesitancy of micturition; R33.9 Retention of urine, unspecified; N17.9 Acute kidney failure, unspecified; E11.9 Type 2 diabetes mellitus without complications; I10 Essential (primary) hypertension; Z88.0 Allergy status to penicillin; Z79.4 Long term (current) use of insulin; Z79.899 Other long term (current) drug therapy
CPT/HCPCS: 99291; 74176; 80053; 81000; 85025; 87086; 36415; 76376; 99292; 96360; J7030